=== PATIENT | male | born 1945 | race Caucasian/White ===

== ENCOUNTER 2017-02-05 09:30 | Emergency (ER) | payer OTHER ==
[~2017-02-05] VITALS: Ht 172.7 cm; Wt 77.6 kg
[~2017-02-05 09:30] MED LIST: ATOR10TA82 PO; METO50TA7 PO; NITR-5 PO; PRLSR20 PO; PROP10TA7 PO; TADA10TA PO; TAMS0.4C38 PO
[2017-02-05 09:32] VITALS: Ht 172.7 cm; Wt 77.6 kg
[2017-02-05 10:24] LABS: BASO ABS # 0.07 K/uL (0-0.2); COMPLETE YES; EOS % 8.6 %; HEMATOCRIT 47.6 % (42-52); IG% 0.3 %; LYMPH % 29.4 %; LYMPH ABS # 2.04 K/uL (1.2-3.4); MEAN CORPUSCULAR HEMOGLOBIN 30.7 pg (25-34); MEAN CORPUSCULAR HGB CONC 34.9 g/dl (32-36); MEAN PLATELET VOLUME 10.9 fL (7.4-10.4); MONO % 10.7 %; PLATELET COUNT 170 K/uL (130-400); RED BLOOD COUNT 5.41 M/uL (4.7-6.1); WHITE BLOOD COUNT 6.94 K/uL (4.8-10.8)
[2017-02-05] MEDS ORDERED: ASPI325T45 PO (10:26)
--- NOTE | 2017-02-05 10:26 | EMERGENCY ROOM VISIT NOTE ---
History Report prepared by Christin: Maynor Bridges Under the Supervision of: Dr. Betzy Crain M.D. First contact with patient: 10:03 Chief Complaint: NEURO SYMPTOMS Stated Complaint: RIGHT FOREARM PAIN - WEAKNESS Nursing Triage Summary: Pt reports at approx 8:30 this morning he developed left forearm pain. At this time he felt lightheaded. He took 2 aspirin and pain subsided in about 15 mins Pt reports the right side of his head feel "full" Pt reports "I had coffee this morning which is out of the norm for me, I don't usually have caffiene" History of Present Illness The patient is a 71 year old male who presents to the Emergency Room with complaints of resolved right arm discomfort occurring about an hour and a half ago. The patient was sitting in lecture when he had a sudden onset of lightheadedness. He denies any room spinning. He felt as though he was about to pass out. He also had some right arm discomfort. He reports a chest pressure which feel like a "bubble" in his chest. He denies any pain in his chest. The chest pressure has been occurring for a long time and he describes it to be chronic. He took 2 full strength Aspirin this morning with relief. The symptoms subsided after about 15 minutes. He currently denies any pain or lightheadedness. He ate breakfast as normal this morning. He has a history of similar arm pain occurring about 2 weeks ago while he was sleeping. He also had jaw pain at the time. His symptoms resolved with Aspirin the last time. He currently denies fevers, headache, difficulty speaking, numbness, facial drooping, jaw pain, shortness of breath, pain with deep breathing, upper back pain, or any other complaints. He did not have any recent illnesses. He had a stress test about 4-5 years ago. He denies any history of cardiac catheterization. Source of History: patient Onset: about an hour and a half ago Position: arm (right) Symptom Intensity: No pain currently Quality: other (discomfort) Timing: resolved Modifying Factors (Relieving): other (2 full strength Aspirin this morning with relief) Associated Symptoms: No SOB, No back pain (upper), No fevers, No headache, No numbness Review of Systems See HPI for pertinent positives & negatives. A total of 10 systems reviewed and were otherwise negative. Past Medical & Surgical Medical Problems: (1) Back pain (2) Colitis (3) Hypertension Family History Cancer Heart disease Hypertension Social History Smoking Status: Never Smoker Marital Status: Housing Status: lives alone Occupation Status: employed Current/Historical Medications Scheduled Atorvastatin (Lipitor), 10 MG PO EVERY OTHER DAY Hydrochlorothiazide (Hctz), 12.5 MG PO DAILY Metoprolol Succ (Toprol Xl) (Toprol-Xl), 25 MG PO BID Omeprazole (Prilosec), 20 MG PO DAILY Tamsulosin Hcl (Flomax), 1 CAP PO DAILY Scheduled PRN Propranolol (Inderal), 10 MG PO prn PRN for Blood Pressure Tadalafil (Cialis), 10 MG PO UD PRN for DIRECTED Miscellaneous Medications Aspirin (Aspirin), 325 MG PO Allergies Coded Allergies: No Known Allergies (Verified , NONE, 02/05/17) Physical Exam Vital Signs Date Time Temp Pulse Resp B/P Pulse Ox O2 Delivery O2 Flow Rate FiO2 02/05/17 12:56 51 02/05/17 12:54 51 18 118/85 97 Room Air 02/05/17 11:15 58 18 120/87 02/05/17 10:47 51 18 140/92 02/05/17 10:16 54 164/105 55 174/99 65 174/102 02/05/17 09:56 52 18 193/113 02/05/17 09:55 56 02/05/17 09:32 54 16 185/137 98 Room Air Physical Exam Vital signs reviewed. General: Well-appearing, in no significant distress. HEENT: No scleral icterus, PERRLA, neck supple. Atraumatic. Cardiovascular: Regular rate and rhythm, no extra sounds. Pulmonary: Clear to auscultation bilaterally, normal work of breathing. Abdomen: Soft, nontender, nondistended, positive bowel sounds. Musculoskeletal: Atraumatic, no peripheral edema. Neurologic: Patient awake alert and oriented x 3, full strength in all 4 extremities. Cranial nerves 2 through 12 grossly intact. Skin: Warm, dry, no rash Medical Decision & Procedures ER Provider Diagnostic Interpretation: X-ray results as stated below per interpretation by me and the radiologist: CHEST ONE VIEW PORTABLE HISTORY: Left-sided chest pain. COMPARISON: Chest 04/01/2016. FINDINGS: The lungs are clear. Cardiac silhouette is top normal in size. No pleural effusions. No pneumothorax. IMPRESSION: No acute process. Electronically signed by: Venu Calle M.D. 02/05/2017 10:54 AM Dictated Date/Time: 02/05/2017 10:52 AM Laboratory Results 02/05/17 09:50 Red Blood Count 5.41, Mean Corpuscular Volume 88.0, Mean Corpuscular Hemoglobin 30.7, Mean Corpuscular Hemoglobin Concent 34.9, Mean Platelet Volume 10.9, Neutrophils (%) (Auto) 50.0, Lymphocytes (%) (Auto) 29.4, Monocytes (%) (Auto) 10.7, Eosinophils (%) (Auto) 8.6, Basophils (%) (Auto) 1.0, Neutrophils # (Auto ) 3.47, Lymphocytes # (Auto) 2.04, Monocytes # (Auto) 0.74, Eosinophils # (Auto ) 0.60, Basophils # (Auto) 0.07 02/05/17 09:50 Test 02/05/17 09:50 02/05/17 10:16 White Blood Count 6.94 K/uL (4.8-10.8) Red Blood Count 5.41 M/uL (4.7-6.1) Hemoglobin 16.6 g/dL (14.0-18.0) Hematocrit 47.6 % (42-52) Mean Corpuscular Volume 88.0 fL (80-100) Mean Corpuscular Hemoglobin 30.7 pg (25-34) Mean Corpuscular Hemoglobin Concent 34.9 g/dl (32-36) Platelet Count 170 K/uL (130-400) Mean Platelet Volume 10.9 fL (7.4-10.4) Neutrophils (%) (Auto) 50.0 % Lymphocytes (%) (Auto) 29.4 % Monocytes (%) (Auto) 10.7 % Eosinophils (%) (Auto) 8.6 % Basophils (%) (Auto) 1.0 % Neutrophils # (Auto) 3.47 K/uL (1.4-6.5) Lymphocytes # (Auto) 2.04 K/uL (1.2-3.4) Monocytes # (Auto) 0.74 K/uL (0.11-0.59) Eosinophils # (Auto) 0.60 K/uL (0-0.5) Basophils # (Auto) 0.07 K/uL (0-0.2) RDW Standard Deviation 42.0 fL (36.4-46.3) RDW Coefficient of Variation 13.0 % (11.5-14.5) Immature Granulocyte % (Auto) 0.3 % Immature Granulocyte # (Auto) 0.02 K/uL (0.00-0.02) Anion Gap 3.0 mmol/L (3-11) Est Creatinine Clear Calc Drug Dose 56.2 ml/min Estimated GFR () 71.1 Estimated GFR (Non- 61.3 BUN/Creatinine Ratio 18.3 (10-20) Calcium Level 8.8 mg/dl (8.5-10.1) Magnesium Level 2.4 mg/dl (1.8-2.4) Total Bilirubin 0.6 mg/dl (0.2-1) Direct Bilirubin 0.1 mg/dl (0-0.2) Aspartate Amino Transf (AST/SGOT) 18 U/L (15-37) Alanine Aminotransferase (ALT/SGPT) 33 U/L (12-78) Alkaline Phosphatase 80 U/L (45-117) Total Creatine Kinase 98 U/L (39-308) Creatine Kinase MB 2.2 ng/ml (0.5-3.6) Creatine Kinase MB Ratio 2.2 (0-3.0) Troponin I < 0.015 ng/ml (0-0.045) Total Protein 7.6 gm/dl (6.4-8.2) Albumin 3.8 gm/dl (3.4-5.0) Thyroid Stimulating Hormone (TSH) 3.350 uIu/ml (0.300-4.500) Chemistry Specimen Hemolysis Bedside D-Dimer 413 ng/mlFEU (0-450) Laboratory results per my review. Medications Administered Medications (Trade) Dose Ordered Sig/Roseanne Route Start Time Stop Time Status Last Admin Dose Admin Hydralazine HCl (HydrALAZINE INJ) 10 mg NOW STAT IV. 02/05/17 10:28 02/05/17 10:29 DC 02/05/17 10:40 10 MG ECG Indication: other (Chest discomfort) Rate (beats per minute): 52 Rhythm: sinus bradycardia Findings: no acute ischemic change, no ectopy ED Course 1003: Past medical records reviewed. The patient was evaluated in room B08. A complete history and physical examination was performed. 1028: Hydralazine HCl 10 mg IV 1300: Upon reevaluation, the patient appeared to have improvement of his symptoms. I discussed findings with him. He verbalized agreement of the treatment plan. The patient was discharged home. Medical Decision Differential diagnosis: Acute coronary syndrome, pulmonary embolus, aortic dissection, musculoskeletal pain, pneumonia, pleural effusion, pneumothorax This patient was evaluated and appeared to be in no significant distress. Physical examination reveals a marked hypertension. There is no focal neurologic deficit consistent with stroke. Head CT was performed and is negative for acute intracranial pathology. Laboratory work is fairly unrevealing. EKG reveals no evidence of acute ischemia. The patient is noted to be bradycardic. He was given 10 mg of IV hydralazine with good result. The patient was feeling improved when his blood pressure responded. The patient takes metoprolol for blood pressure management, HCTZ 12.5 mg daily was added. He was encouraged to follow-up with his primary care physician this week for reevaluation and blood pressure recheck. He will return to the ER for worsening of symptoms or any medical concerns. Impression Primary Impression: Hypertension Scribe Attestation The scribe's documentation has been prepared under my direction and personally reviewed by me in its entirety. I confirm that the note above accurately reflects all work, treatment, procedures, and medical decision making performed by me. Departure Information Dispostion Home / Self-Care Prescriptions Hydrochlorothiazide (HCTZ) 12.5 Mg Cap 12.5 MG PO DAILY, #7 TAB Prov: Betzy Crain M.D. 02/05/17 Referrals No Doctor, Assigned (PCP) Forms HOME CARE DOCUMENTATION FORM, IMPORTANT VISIT INFORMATION, WORK / SCHOOL INSTRUCTIONS Patient Instructions [facility] Additional Instructions Diagnosis: Hypertension HCTZ 12.5 mg once daily. Continue your other blood pressure medications as prescribed. Maintain a low sodium diet (less than 2 gm daily) Follow up with your physician this week for reevaluation and further medication management. Return to the ER for worsening of symptoms or any medical concerns. CAll the ED in 1 week for lyme results. [phone] Problem Qualifiers Primary Impression: Hypertension Hypertension type: essential hypertension Qualified Codes: I10 - Essential ( primary) hypertension
[2017-02-05] MEDS ORDERED: HydrALAZINE HCL 20 MG/ML VIAL IV. STA (10:28)
[2017-02-05 10:40] LABS: BUN/CREATININE RATIO 18.3 (10-20); CALCIUM 8.8 mg/dl (8.5-10.1); CREATININE 1.2 mg/dl (0.60-1.40); MAGNESIUM 2.4 mg/dl (1.8-2.4); POTASSIUM 3.9 mmol/L (3.5-5.1)
[2017-02-05 10:54] LABS: CKMB/CK RATIO 2.2 (0-3.0); THYROID STIMULATING HORMONE 3.35 uIu/ml (0.300-4.500)
--- NOTE | 2017-02-05 10:55 | DIAGNOSTIC IMAGING REPORT ---
CHEST ONE VIEW PORTABLE HISTORY: Left-sided chest pain. COMPARISON: Chest 04/01/2016. FINDINGS: The lungs are clear. Cardiac silhouette is top normal in size. No pleural effusions. No pneumothorax. IMPRESSION: No acute process. Electronically signed by: Venu Calle M.D. 02/05/2017 10:54 AM Dictated Date/Time: 02/05/2017 10:52 AM
[2017-02-05 12:54] VITALS: BP 118/85; O2SAT 97
[2017-02-05 12:56] VITALS: PULSE 51
[2017-02-05] MEDS ORDERED: HYDR12.56 PO (13:02)
== END 2017-02-05 13:07 | disposition home or self-care (01) ==
LOC: C.EDB 09:32
DX: I10 Essential (primary) hypertension (principal); M54.9 Dorsalgia, unspecified; R00.1 Bradycardia, unspecified